=== PATIENT | female | born 1995 | race Caucasian/White ===

== ENCOUNTER 2021-07-13 11:20 | Emergency (ER) | payer OTHER ==
[~2021-07-13] VITALS: Ht 172.7 cm; Wt 77.1 kg
[2021-07-13] MEDS ORDERED: MORPHINE SULFATE 4 MG/1 ML DISP.SYRIN IM ONE (13:00)
[2021-07-13] MEDS ORDERED: KETOROLAC TROMETHAMINE 60 MG INJ IM ONE ×2 (13:00→13:27)
[2021-07-13] MEDS ORDERED: IV NORMAL SALINE 250 ML IV ONE (13:23)
[2021-07-13] MEDS ORDERED: IOHEXOL 300MG/ML 100 ML INFUS..BTL ONE (13:23)
[2021-07-13] MEDS ORDERED: SWABABLE VALVE TRANSFER SET EA MC ONE (13:23)
[2021-07-13] MEDS ORDERED: MORPHINE SULFATE 4 MG/1 ML DISP.SYRIN ONE (13:27)
[2021-07-13 14:15] LABS: HEMATOCRIT 35.4 % (31.2-41.9); MEAN CORPUSCULAR HEMOGLOBIN 27.8 uug (24.7-32.8); MEAN CORPUSCULAR VOLUME 83.9 fL (75.5-95.3); PLATELET COUNT (AUTO) 260 K/uL (179-408)
[2021-07-13 14:21] LABS: CARBON DIOXIDE 28 mmol/L (21-32); CHLORIDE 103 mmol/L (98-107); CREATININE 0.7 mg/dL (0.6-1.3); GLUCOSE 97 mg/dL (74-106); POTASSIUM 4.3 mmol/L (3.5-5.1); UREA NITROGEN, BLOOD 12 mg/dL (7-18)
--- NOTE | 2021-07-13 14:24 | NUR ---
UNABLE TO HEPLOCK THE PT. CHANGED THE CT OF CHEST TO W/O CONTRAST
[2021-07-13 14:26] LABS: ALANINE AMINOTRANSFERASE 22 U/L (14-59); ALKALINE PHOSPHATASE 66 U/L (50-136); ASPARTATE AMINOTRANSFERASE 16 U/L (15-37); BILIRUBIN,TOTAL 0.3 mg/dL (0.2-1.0); CREATINE KINASE, TOTAL 155 U/L (26-192); TOTAL PROTEIN, SERUM 7.1 g/dL (6.4-8.2)
[2021-07-13] MEDS ORDERED: TDAP DIPH,PERTUSS,TET VAC/PF 0.5 ML DISP.SYRIN IM ONE ×2 (16:00→16:33)
[2021-07-13] MEDS ORDERED: IBUP-1955 PO (16:02)
[2021-07-13] MEDS ORDERED: HYDR-4209 PO (16:02)
[2021-07-13 16:39] VITALS: BP 108/77
--- NOTE | 2021-07-13 16:39 | NUR ---
Patient discharged to home in stable condition. Written and verbal after care instructions given. Patient verbalizes understanding of instructions. Stressed follow up or return to ER for worsening s/s.PT WALKS I NSTEADY GAIT. PT NOT DRIVING, BOY FRIEND HERE TO GIVE PT RIDE.
== END 2021-07-13 16:43 | disposition home or self-care (01) ==
LOC: ER 11:20
DX: S22.41XA Multiple fractures of ribs, right side, initial encounter for closed fracture (principal); S42.021A Displaced fracture of shaft of right clavicle, initial encounter for closed fracture; V49.9XXA Car occupant (driver) (passenger) injured in unspecified traffic accident, initial encounter; Y92.89 Other specified places as the place of occurrence of the external cause; J90 Pleural effusion, not elsewhere classified; J98.11 Atelectasis
CPT/HCPCS: 36415; 70450; 71101; 71250; 73030; 73610; 73630; 80053; 82550; 84702; 85025; 90471; 90715; 96372 ×2; 99285; J1885; J2270; A4663; J7050; Q9967